=== PATIENT | female | born 1935 | race Caucasian/White ===

== ENCOUNTER 2017-10-10 08:32 | Emergency (ER) | END 2017-10-10 10:50 | disposition home or self-care (01) ==

== ENCOUNTER 2018-01-10 17:17 | Emergency (ER) | END 2018-01-10 22:21 | disposition home or self-care (01) ==

== ENCOUNTER 2018-02-09 01:33 | Inpatient (IN) | END 2018-02-10 13:35 | disposition home or self-care (01) | DRG 684 ==